=== PATIENT | female | born 1950 | race Caucasian/White ===

== ENCOUNTER 2019-08-03 11:16 | Emergency (ER) | payer MEDICARE ==
[~2019-08-03] VITALS: Ht 172.7 cm; Wt 90.0 kg
--- NOTE | 2019-08-03 11:41 | NUR ---
PATIENT AMBULATORY TO ER #11 WITH C/O LEFT WRIST PAIN AFTER FALLING ON WALKING PATH TODAY. PAIN AROUND ENTIRE WRIST BUT GOOD MOVEMENT AND SENSATION TO FINGERS.
[2019-08-03] MEDS ORDERED: LIDOcaine 1% W/epiNEPHrine 1:100,000 20ml vial SQ ONE (12:15)
[2019-08-03] MEDS ORDERED: HYDROcodone/acetaminophen 5mg/325mg tablet PO ONE (12:15)
[2019-08-03] MEDS ORDERED: HYDR-3965 PO (13:41)
[2019-08-03] MEDS ORDERED: morphine 4 MG/ML inj SYRINge IM ONE (13:50)
[2019-08-03 14:10] VITALS: BP 145/81
== END 2019-08-03 14:12 | disposition home or self-care (01) ==
LOC: ER 11:17
DX: S52.592A Other fractures of lower end of left radius, initial encounter for closed fracture (principal); S52.612A Displaced fracture of left ulna styloid process, initial encounter for closed fracture; J45.909 Unspecified asthma, uncomplicated; E03.9 Hypothyroidism, unspecified; Z88.1 Allergy status to other antibiotic agents; Z79.899 Other long term (current) drug therapy; W01.0XXA Fall on same level from slipping, tripping and stumbling without subsequent striking against object, initial encounter; Y93.89 Activity, other specified; Y92.89 Other specified places as the place of occurrence of the external cause; Y99.8 Other external cause status
CPT/HCPCS: 25605; 73100; 73110; 96372; 99284; J2270